=== PATIENT | female | born 1965 | race Caucasian/White ===

== ENCOUNTER 2022-07-21 14:19 | Outpatient (RCR) | payer BC, SELFPAY ==
[2022-07-21 15:11] VITALS: BMI 48.9
[2022-07-28 12:24] VITALS: BMI 48.9
== END 2022-10-19 23:59 | disposition home or self-care (01) ==
LOC: ANHDMC 14:19
PROVIDERS: Visit Provider Family Medicine
DX: C54.1 Malignant neoplasm of endometrium (principal); Z71.3 Dietary counseling and surveillance
CPT/HCPCS: 97802